=== PATIENT | male | born 1975 | race Asian ===

== ENCOUNTER 2016-11-06 09:40 | Day surgery (SDC) | payer BC ==
[2016-11-02 15:54] VITALS: BMI 25.2
[2016-11-06 10:24] LABS: BASOPHIL 0.8 % (0-2.0); EOSINOPHIL 6.5 % (0-4.5); MCH 24.4 pg (25.7-33.7); MCHC 32.3 g/dl (32.0-35.9); MEAN CELL VOLUME 75.5 fl (80-96); MEAN PLT VOLUME 7.8 fl (7.5-11.1); NEUTROPHILS 58.7 % (42.8-82.8); PLATELET COUNT 292 K/MM3 (134-434); RDW 15.7 % (11.9-15.9); WHITE BLOOD COUNT 7.5 K/mm3 (4.0-10.0)
[2016-11-06 11:08] LABS: INR 1.3 (0.82-1.09); PROTHROMBIN TIME (PATIENT) 14.4 SEC (9.98-11.88)
[2016-11-06 12:31] VITALS: TEMP 98.6
[2016-11-06 12:54] VITALS: BP 128/80; PULSE 88
--- NOTE | 2016-11-09 11:51 | PATH ---
Surgical Pathology Report Patient Name: FELICIANO HAN [facility]. Rec. #: [id number] /Age/Gender: 1975 (Age: 41) / M Account: [id number] Location: RADIOLOGY Taken: 11/06/2016 Received: 11/06/2016 Reported: 11/09/2016 Physicians: Clair Christensen M.D. Specimen(s) Received BX RIGHT AXILLARY LYMPH NODE Clinical History 41 year-old with bulky bilateral axillary adenopathy Final Diagnosis LYMPH NODE, RIGHT AXILLARY, US GUIDED CORE BIOPSY: CLASSICAL HODGKIN LYMPHOMA (SEE COMMENT). Comment: This case was seen in consultation with hematopathology service at [facility], [place], [place] ([id number], Dr. Bradley). The diagnosis above reflects the consultation opinion. Subtyping of this Hodgkin lymphoma is difficult due to the scant amount of material. However, with the focal fibrosis, nodular sclerosis is favored. Sections show several cores of lymphoid tissue with a vaguely maria alejandra architecture. There focal bands of fibrosis. In some areas, the scattered large, highly atypical cells with highly irregular contours, open chromatin, and prominent nucleoli. There is side is in a background of small lymphocytes, plasma cells, and eosinophils. In other areas, the reactive lymphoid follicles. Immunohistochemical stains performed and interpreted at [facility] showed the following: the large atypical cells are positive for CD30, Fascin with dim variable positivity for CD20. They show no definitive staining for CD15. Stain for CD3 highlights the majority of small background lymphocytes. A stain for BCL-2 is similar to CD3. A stain for BCL-6 highlights germinal center cells. The stain for MUM-1 highlights plasma cells. In situ hybridization for KRANTHI is positive in the atypical cells. Flow cytometry performed and interpreted on the concurrent specimen at [facility], [place], [place] ([id number]) showed no clonal B-cell or atypical T-cell population with the sample composed mostly Of small and medium-sized lymphocytes including a mixture of polyclonal B-cells and immunophenotypically normal CD4+ and CD8+ T-cells. The case was discussed with Dr. Burns on 11/09/16. Electronically Signed Ethan Whelan M.D. Gross Description Received in formalin, labeled with the patient's name and indicated on the requisition to be axillary lymph node biopsy, are 3 pandey, cylindrical portions of soft tissue ranging from 1.0-1.6 cm in length and averaging 0.1 cm in diameter. The specimens are submitted in toto in one cassette. There is additional tissue received in RPMI solution which is sent for flow cytometry. 11/06/201611/06/2016
== END 2016-11-06 12:54 | disposition home or self-care (01) ==
LOC: JRADIR 09:40
PROVIDERS: ATTEND Specialist
PROC: 07B53ZX Excision of Right Axillary Lymphatic, Percutaneous Approach, Diagnostic (ICD-10-PCS; principal; 2016-11-06)
DX: C81.74 Other Hodgkin lymphoma, lymph nodes of axilla and upper limb (principal)
CPT/HCPCS: 36415; 38505; 76942-TC; 85025; 85610; 88305-TC

== ENCOUNTER 2018-07-22 18:31 | Emergency (ER) | payer BC ==
[2018-07-22 18:46] VITALS: BP 148/91; PULSE 78; TEMP 98.1; BMI 33.9
--- NOTE | 2018-07-22 18:46 | PDOC ---
Rapid Medical Evaluation Medical Evaluation: Allergies Allergy/AdvReac Type Severity Reaction Status Date / Time No Known Allergies Allergy Verified 11/02/16 15:42 I have performed a brief in-person evaluation of this patient. The patient presents with a chief complaint of: throat pain x 1 week; denies fever, cough; also mentions discomfort R upper eyelid x 1 week, denies eye discharge Pertinent physical exam findings: +R eye stye, oropharynx clear I have ordered the following: Nothing The patient will proceed to the ED for further evaluation. 07/22/18 18:43
--- NOTE | 2018-07-22 19:04 | PDOC ---
History of Present Illness - General Chief Complaint: Cold Symptoms Stated Complaint: SORE THROAT/EYE PAIN Time Seen by Provider: 07/22/18 18:43 - History of Present Illness Initial Comments: 07/22/18 19:02 42-year-old male with a past medical history significant for Hodgkin's lymphoma presents for evaluation of sore throat times one week and right I upper lid irritation for the same amount of time. He has no systemic symptoms or changes in vision. Past History - Past Medical History Allergies/Adverse Reactions: Allergies Allergy/AdvReac Type Severity Reaction Status Date / Time No Known Allergies Allergy Verified 11/02/16 15:42 Home Medications: Ambulatory Orders Erythromycin 0.5% Eye Ointment [Erythromycin 0.5% Eye Ointment -] 1 applic OD TID 5 Days #1 tube 07/22/18 COPD: No GI Disorders: No Hypercholesterolemia: No - Surgical History Cardiac Surgery: No - Immunization History Immunization Up to Date: No - Suicide/Smoking/Psychosocial Hx Smoking History: Current some day smoker Have you smoked in the past 12 months: Yes Number of Cigarettes Smoked Daily: 5 If you are a former smoker, when did you quit?: July 2016 Information on smoking cessation initiated: No Hx Alcohol Use: No Drug/Substance Use Hx: No Substance Use Type: None Hx Substance Use Treatment: No Review of Systems - Review of Systems Constitutional: No: Chills, Fever, Malaise, Night Sweats HEENTM: Yes: See HPI, Eye Pain, Throat Pain, Difficulty Swallowing Respiratory: No: Cough *Physical Exam - Vital Signs Last Vital Signs Temp Pulse Resp BP Pulse Ox 98.1 F 78 18 148/91 98 07/22/18 18:43 07/22/18 18:43 07/22/18 18:43 07/22/18 18:43 07/22/18 18:43 - Physical Exam Comments: 07/22/18 19:03 HEAD: NC/AT EYES: Conjuntiva clear; there is right upper lid swelling with minimal erythema no focal fluctuance Ears: Canals and TM's normal NOSE: No d/c THROAT: Moist mucous membrances, oral pharanx clear, uvula midline NECK: Supple without adenopathy CARDIAC: S1 S2 LUNGS: CTA Full and Equal breath sounds ABDOMEN: Soft NT ND MS: Full ROM in all joints without edema NEUROLOGIC: No gross sensory or motor deficits, NVID SKIN: Normal color and temperature no lesions or rashes Moderate Sedation - Procedure Monitoring Vital Signs: Procedure Monitoring Vital Signs Temperature 98.1 F 07/22/18 18:43 Pulse Rate 78 07/22/18 18:43 Respiratory Rate 18 07/22/18 18:43 Blood Pressure 148/91 07/22/18 18:43 O2 Sat by Pulse Oximetry (%) 98 07/22/18 18:43 *DC/Admit/Observation/Transfer Diagnosis at time of Disposition: Sty, external, Viral pharyngitis - Discharge Dispostion Disposition: HOME Condition at time of disposition: Stable Decision to Admit order: No - Prescriptions Prescriptions: Erythromycin 0.5% Eye Ointment [Erythromycin 0.5% Eye Ointment -] 1 applic OD TID 5 Days #1 tube - Referrals Referrals: Orlando Kwok [Non Staff, Medical] - - Patient Instructions Printed Discharge Instructions: Hordeolum, DI for Hordeolum, Viral Pharyngitis , DI for Viral Pharyngitis Additional Instructions: Warm salt water gargles will help her throat pain. Tylenol Motrin as directed. Follow-up with her primary care physician one to 2 days for further evaluation and treatment options. Return to the emergency room for worsening symptoms. Follow-up with your primary care physician for further evaluation and treatment of your eye discomfort. Please use the antibiotic ointment as directed. - Post Discharge Activity
== END 2018-07-22 21:03 | disposition home or self-care (01) ==
LOC: JERFT 18:31
DX: J02.9 Acute pharyngitis, unspecified (principal); H00.011 Hordeolum externum right upper eyelid; B97.89 Other viral agents as the cause of diseases classified elsewhere
CPT/HCPCS: 87070; 87077; 87880; 99281-25

== ENCOUNTER 2018-11-15 14:19 | Emergency (ER) | payer BC ==
[2018-11-15 14:29] VITALS: BP 152/98; PULSE 96; TEMP 98.5; BMI 28.1
[2018-11-15] MEDS ORDERED: ERYTHROMYCIN 0.5% OPHTHALMIC OINTMENT 3.5 GM TUBE OS ONE (14:55)
--- NOTE | 2018-11-15 15:02 | PDOC ---
History of Present Illness - General Chief Complaint: Eye Problem Stated Complaint: LF EYE REDNESS/WATERING Time Seen by Provider: 11/15/18 14:50 History Source: Patient Exam Limitations: No Limitations - History of Present Illness Timing/Duration: unsure, 24 hours Past History - Travel Traveled outside of the country in the last 30 days: No Close contact w/someone who was outside of country & ill: No - Past Medical History Allergies/Adverse Reactions: Allergies Allergy/AdvReac Type Severity Reaction Status Date / Time No Known Allergies Allergy Verified 11/15/18 14:28 Home Medications: Ambulatory Orders Erythromycin 0.5% Eye Ointment [Erythromycin 0.5% Eye Ointment -] 1 applic OU TID 5 Days #1 tube 11/15/18 Tetrahydrozoline HCl [Visine] 4 drop OU BID 11/15/18 COPD: No GI Disorders: No Hypercholesterolemia: No - Surgical History Cardiac Surgery: No - Immunization History Immunization Up to Date: No - Suicide/Smoking/Psychosocial Hx Smoking History: Never smoked Have you smoked in the past 12 months: No Number of Cigarettes Smoked Daily: 5 If you are a former smoker, when did you quit?: July 2016 Information on smoking cessation initiated: No Hx Alcohol Use: No Drug/Substance Use Hx: No Substance Use Type: None Hx Substance Use Treatment: No Review of Systems - Review of Systems Able to Perform ROS?: Yes Is the patient limited Nepali proficient: Yes Constitutional: Yes: Symptoms Reported, See HPI, Chills HEENTM: Yes: Symptoms Reported, See HPI, Tearing. No: Eye Pain, Blurred Vision , Recent change in vision, Double Vision Respiratory: Yes: See HPI. No: Symptoms reported Musculoskeletal: No: Symptoms Reported Integumentary: No: Symptoms Reported *Physical Exam - Vital Signs Last Vital Signs Temp Pulse Resp BP Pulse Ox 98.5 F 96 H 18 152/98 98 11/15/18 14:26 11/15/18 14:26 11/15/18 14:26 11/15/18 14:11/15/18 14:26 - Physical Exam General Appearance: Yes: Nourished, Appropriately Dressed HEENT: positive: Normal ENT Inspection, TMs Normal, Pharynx Normal, Other ( NJECTEDLEFT WITH CLEAR TEARING No purulent drainage, visual acuity is within normal limits,and has firmanon-ointingsty midpoint upper lid is minimally painful.) Neck: positive: Supple. negative: Tender, Lymphadenopathy (R), Lymphadenopathy (L) Respiratory/Chest: positive: Lungs Clear Gastrointestinal/Abdominal: positive: Normal Bowel Sounds, Soft. 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, Fully Oriented, Alert, Normal Mood/ Affect, Normal Response, Motor Strength 5/5 *DC/Admit/Observation/Transfer Diagnosis at time of Disposition: Sty, external Qualifiers: Laterality: left Eyelid: upper Qualified Code(s): H00.014 - Hordeolum externum left upper eyelid - Discharge Dispostion Disposition: HOME Condition at time of disposition: Stable Decision to Admit order: No - Referrals - Patient Instructions Printed Discharge Instructions: DI for Blepharitis Additional Instructions: Rest, avoid rubbing eyes Hot soaks to I often as possible to help draw the sterile infection to a head and allow to drain This is not generally a dangerous infection and will usually go away hot soaks STOP USING VISINE~!!!! Erythromycin ointment to affected eye 3 times a day until healed UseD primarily for lubricating purposE Avoid contact with others until redness and discharge is gone from eyes. Followup with ophthalmology or private physician as needed - Post Discharge Activity Forms/Work/School Notes: Back to Work
== END 2018-11-15 15:20 | disposition home or self-care (01) ==
LOC: JERFT 14:19 → JER 14:19 → JERFT 15:20
DX: H00.014 Hordeolum externum left upper eyelid (principal)
CPT/HCPCS: 99281-25

== ENCOUNTER 2018-11-20 16:36 | Emergency (ER) | payer BC ==
--- NOTE | 2018-11-20 16:43 | PDOC ---
Rapid Medical Evaluation Chief Complaint: Cold Symptoms Time Seen by Provider: 11/20/18 16:39 Medical Evaluation: Allergies Allergy/AdvReac Type Severity Reaction Status Date / Time No Known Allergies Allergy Verified 11/15/18 14:28 11/20/18 16:39 I have performed a brief in-person evaluation of this patient. The patient presents with a chief complaint of: bilateral eye redness with itching,. No drainage. States feels congested Pertinent physical exam findings: bilateral erythema to eyes, seen last week for same. now with throat and ear pain also. I have ordered the following: nothing The patient will proceed to the ED for further evaluation. 11/20/18 16:41 Discharge Disposition - Diagnosis Common cold - Referrals - Patient Instructions - Post Discharge Activity
[2018-11-20 16:44] VITALS: BP 141/95; PULSE 84; TEMP 98.3; BMI 34.7
--- NOTE | 2018-11-20 17:02 | PDOC ---
History of Present Illness - General Chief Complaint: Cold Symptoms Stated Complaint: EYES/NOSE/EARS/ PAIN Time Seen by Provider: 11/20/18 16:39 History Source: Patient Exam Limitations: Clinical Condition - History of Present Illness Initial Comments: 11/20/18 17:02 Patient with no significant past medical history present with complaint of cough , nasal congestion, sore throat and left ear pain with redness in discharge from bilateral eyes. Patient was seen 5 days ago for bilateral eye discharge and irritation and was discharged home on topical erythromycin ointment. Patient reported followed up with ophthalmology after visiting and was given eyedrops which has been helpful with of redness. Report redness was in left eye and now moved to both eyes. Denies blurry vision or change in vision. Denies fever, chills. Denies any other symptoms Timing/Duration: other (3 days) Past History - Past Medical History Allergies/Adverse Reactions: Allergies Allergy/AdvReac Type Severity Reaction Status Date / Time No Known Allergies Allergy Verified 11/20/18 16:39 Home Medications: Ambulatory Orders Erythromycin 0.5% Eye Ointment [Erythromycin 0.5% Eye Ointment -] 1 applic OU TID 5 Days #1 tube 11/15/18 Tetrahydrozoline HCl [Visine] 4 drop OU BID 11/15/18 Amox-Tr/K Cl [Augmentin - 875Mg Tablet] 1 tab PO BID #14 tablet 11/20/18 Ipratropium [place] 2 spray NS BID PRN #1 spray 11/20/18 Methylprednisolone [Medrol Dose Anjum] 4 mg PO ASDIR #21 tablet 11/20/18 Montelukast Sodium [Singulair] 10 mg PO DAILY #10 tablet 11/20/18 COPD: No GI Disorders: No Hypercholesterolemia: No - Surgical History Cardiac Surgery: No - Immunization History Immunization Up to Date: No - Suicide/Smoking/Psychosocial Hx Smoking History: Current some day smoker Have you smoked in the past 12 months: Yes Number of Cigarettes Smoked Daily: 2 If you are a former smoker, when did you quit?: July 2016 Information on smoking cessation initiated: Yes Hx Alcohol Use: No Drug/Substance Use Hx: No Substance Use Type: None Hx Substance Use Treatment: No Review of Systems - Review of Systems Able to Perform ROS?: Yes Is the patient limited Danish proficient: No Constitutional: No: Chills, Fever HEENTM: Yes: Symptoms Reported, See HPI, Tearing, Ear Pain (left ear pain), Nose Congestion, Throat Pain. No: Eye Pain, Blurred Vision, Recent change in vision, Double Vision, Cataracts, Ocular Prothesis, Ear Discharge, Nose Pain, Tinnitus, Nose Bleeding, Hearing Loss, Throat Swelling, Mouth Pain, Dental Problems, Difficulty Swallowing, Mouth Swelling, Other Respiratory: Yes: Symptoms reported, See HPI, Cough. No: Orthopnea, Shortness of Breath, SOB with Exertion, SOB at Rest, Stridor, Wheezing, Productive cough, Hemoptysis, Other Cardiac (ROS): No: Symptoms Reported, See HPI, Chest Pain, Edema, Irregular Heart Rate, Lightheadedness, Palpitations, Syncope, Chest Tightness, Other ABD/GI: No: Constipated, Diarrhea, Nausea, Vomiting All Other Systems: Reviewed and Negative *Physical Exam - Vital Signs Last Vital Signs Temp Pulse Resp BP Pulse Ox 98.3 F 84 20 141/95 100 11/20/18 16:40 11/20/18 16:40 11/20/18 16:40 11/20/18 16:40 11/20/18 16:40 - Physical Exam Comments: 11/20/18 17:07 GENERAL: Well developed, well nourished. Awake and alert. No acute distress. HEENT: Moderately injected bilateral conjunctivae. No discharge from bilateral eyes. Moderately injected left in the ear canal with mild bulging left tympanic membrane. Right ear canal normal. Mild pharyngeal erythema with multiple white exudate on bilateral tonsils. Normocephalic, atraumatic. PERRLA, EOMI. Sclera are non-icteric. Moist mucous membranes. NECK: Supple. Full ROM. CARDIOVASCULAR: Regular rate and rhythm. No murmurs, rubs, or gallops. Distal pulses are 2+ and symmetric. PULMONARY: No evidence of respiratory distress. Lungs clear to auscultation bilaterally. No wheezing, rales or rhonchi. ABDOMINAL: Soft. Non-tender. Non-distended. No rebound or guarding. No organomegaly. Normoactive bowel sounds. MUSCULOSKELETAL Normal range of motion at all joints. SKIN: Warm and dry. Normal capillary refill. No rashes. NEUROLOGICAL: Alert, awake, appropriate. Gait is normal without ataxia. PSYCHIATRIC: Cooperative. Good eye contact. Appropriate mood General Appearance: Yes: Nourished, Appropriately Dressed. No: Apparent Distress Medical Decision Making - Medical Decision Making 11/20/18 17:05 Patient with no significant past medical history present with complaint of cough , nasal congestion, sore throat and left ear pain with redness in discharge from bilateral eyes. Patient was seen 5 days ago for bilateral eye discharge and irritation and was discharged home on topical erythromycin ointment. Patient reported followed up with ophthalmology after visiting and was given eyedrops which has been helpful with of redness. Report redness was in left eye and now moved to both eyes. Denies blurry vision or change in vision. Denies fever, chills. Denies any other symptoms Exam significant for moderately injected left ear canal mildly bulging tympanic membrane of left. Right ear normal. Mild pharyngeal erythema with white exudates on tonsils. Moderately injected bilateral conjunctivae. No discharge from eyes. Patient be discharged home Augmentin antibiotics for otitis media and pharyngitis with Atrovent nasal spray for nasal congestion and Singulair for antihistamine with advised to continue prescribed eyedrops by ophthalmology with ENT follow-up. *DC/Admit/Observation/Transfer Diagnosis at time of Disposition: Pharyngitis Qualifiers: Pharyngitis/tonsillitis etiology: unspecified etiology Qualified Code(s): J02.9 - Acute pharyngitis, unspecified Left otitis externa Qualifiers: Otitis externa type: unspecified type Chronicity: acute Qualified Code(s): H60.502 - Unspecified acute noninfective otitis externa, left ear Sinusitis Qualifiers: Sinusitis location: unspecified location Chronicity: acute Recurrence: non- recurrent Qualified Code(s): J01.90 - Acute sinusitis, unspecified Conjunctivitis Qualifiers: Conjunctivitis type: acute Acute conjunctivitis type: unspecified Laterality: bilateral Qualified Code(s): H10.33 - Unspecified acute conjunctivitis, bilateral - Discharge Dispostion Disposition: HOME Condition at time of disposition: Stable Decision to Admit order: No - Prescriptions Prescriptions: Amox-Tr/K Cl [Augmentin - 875Mg Tablet] 1 tab PO BID #14 tablet Ipratropium [place] 2 spray NS BID PRN #1 spray PRN Reason: nasal congestion Methylprednisolone [Medrol Dose Anjum] 4 mg PO ASDIR #21 tablet Montelukast Sodium [Singulair] 10 mg PO DAILY #10 tablet - Referrals Referrals: Colby Garcia MD [Staff Physician] - - Patient Instructions Printed Discharge Instructions: Middle Ear Infection Additional Instructions: Take medications as prescribed. Use home eyedrops given by ophthalmology as prescribed. Increase fluid intake. Follow-up referred ENT if symptoms persist for more than 5 days - Post Discharge Activity
== END 2018-11-20 17:13 | disposition home or self-care (01) ==
LOC: JERFT 16:36
DX: J00 Acute nasopharyngitis [common cold] (principal)
CPT/HCPCS: 99281-25